=== PATIENT | female | born 1990 | race Hispanic/Latino ===

== ENCOUNTER 2021-06-12 13:20 | Emergency (ER) | payer SELFPAY ==
[2021-06-12] MEDS ORDERED: ONDANSETRON 4 MG/2 ML INJ IV ONE (13:23)
[2021-06-12] MEDS ORDERED: SODIUM CHLORIDE 0.9% 1000 ML 1,000 ML IV ONE ×2 (13:23→13:46)
--- NOTE | 2021-06-12 13:28 | Emergency Department Report ---
ED N/V/D HPI - General Chief complaint: Nausea/Vomiting/Diarrhea Stated complaint: NAUSEA/VOMITING PUI?: No Time Seen by Provider: 06/12/21 13:23 Source: EMS Mode of arrival: Wheelchair Limitations: No Limitations - History of Present Illness Initial comments: Chief complaint: I tried Suboxone. Symptoms got worse. HPI: This is a 31 yo female with hx of fentanyl dependence who presents with nausea/vomiting Recently started taking Suboxone. She last smoked for known on Sunday afternoon. Her first dose of Suboxone was 10 AM this morning. She has been vomiting since this morning. MD complaint: nausea, vomiting -: Gradual, This afternoon Description of Vomiting: food contents Associated Abdominal Pain: No Severity: severe Improves with: none Worsens with: none Context: other (Fentanyl dependence recent Suboxone use) - Related Data Previous Rx's Medication Instructions Recorded Last Taken Type Promethazine [Phenergan] 25 mg PO Q6HR PRN #20 tab 06/12/21 Unknown Rx Allergies Allergy/AdvReac Type Severity Reaction Status Date / Time No Known Allergies Allergy Verified 06/12/21 13:25 ED Review of Systems ROS: Stated complaint: NAUSEA/VOMITING Other details as noted in HPI Comment: All other systems reviewed and negative Constitutional: denies: chills, fever, malaise Respiratory: denies: cough, shortness of breath Cardiovascular: denies: chest pain Gastrointestinal: nausea, vomiting. denies: abdominal pain ED Past Medical Hx - Past Medical History Previous Medical History?: Yes Additional medical history: Opioid dependence - Surgical History Past Surgical History?: No - Social History Substance Use Type: Prescribed - Medications Home Medications: Home Medications Medication Instructions Recorded Confirmed Last Taken Type Promethazine [Phenergan] 25 mg PO Q6HR PRN #20 tab 06/12/21 Unknown Rx ED Physical Exam - General Limitations: No Limitations General appearance: alert, in no apparent distress, other (Appears uncomfortable holding emesis bag) - Head Head exam: Present: atraumatic, normocephalic - Eye Eye exam: Present: normal appearance - ENT ENT exam: Present: mucous membranes moist - Neck Neck exam: Present: normal inspection, full ROM - Respiratory Respiratory exam: Present: normal lung sounds bilaterally. Absent: respiratory distress - Cardiovascular Cardiovascular Exam: Present: regular rate, normal rhythm. Absent: systolic murmur, diastolic murmur, rubs, gallop - GI/Abdominal GI/Abdominal exam: Present: soft, normal bowel sounds - Extremities Exam Extremities exam: Present: normal inspection - Neurological Exam Neurological exam: Present: alert, oriented X3 - Psychiatric Psychiatric exam: Present: normal affect, normal mood - Skin Skin exam: Present: warm, dry, intact, normal color. Absent: rash ED Course Vital Signs 06/12/21 06/12/21 06/12/21 13:24 13:47 15:17 Temperature 97.9 F Pulse Rate 91 H 96 H Respiratory 16 12 Rate Blood Pressure Blood Pressure 146/85 152/99 [Right] O2 Sat by Pulse 99 100 100 Oximetry 06/12/21 06/12/21 15:19 15:35 Temperature Pulse Rate 76 84 Respiratory 12 12 Rate Blood Pressure 152/99 Blood Pressure 148/91 [Right] O2 Sat by Pulse 100 99 Oximetry ED Medical Decision Making - Medical Decision Making Opiate withdrawal leading to intolerance of Suboxone. Aleena waited 36 hours since her last use of fentanyl to take the first dose of Suboxone. She has been prescribed 8 mg twice daily. I have prescribed promethazine. She understands to take promethazine 30 minutes prior to her next dose of Suboxone. She received IV fluid normal saline 1 bolus, IV haloperidol, IV lorazepam, IV Zofran. Critical care attestation.: If time is entered above; I have spent that time in minutes in the direct care of this critically ill patient, excluding procedure time. ED Disposition Clinical Impression: Opioid withdrawal, Opioid dependence Disposition: 01 HOME / SELF CARE / HOMELESS Is pt being admited?: No Does the pt Need Aspirin: No Condition: Stable Instructions: Opioid Withdrawal, Opioid Use Disorder Prescriptions: Promethazine [Phenergan] 25 mg PO Q6HR PRN #20 tab PRN Reason: Nausea
[2021-06-12] MEDS ORDERED: LORazepam 2 MG/ML VIAL IV ONE (15:07)
[2021-06-12] MEDS ORDERED: HALOPERIDOL LACTATE 5 MG/1 ML INJ IV STA (15:07)
[2021-06-12 17:27] VITALS: BP 137/85
== END 2021-06-12 17:29 | disposition home or self-care (01) ==
LOC: ED 13:20
DX: R11.2 Nausea with vomiting, unspecified (principal); F11.23 Opioid dependence with withdrawal; Z79.899 Other long term (current) drug therapy
CPT/HCPCS: 96361; 96374; 96375; 99283; J1630; J2060; J2405; J7030